=== PATIENT | male | born 1955 | race Hispanic/Latino ===

== ENCOUNTER 2016-09-07 13:04 | Emergency (ER) | payer MEDICAID ==
[2016-09-07] MEDS ORDERED: NORMAL SALINE 500 ML IV ONE (14:34)
[2016-09-07 15:00] LABS: BASOPHILS 0.8 % (0.0-2.0); EOSINOPHILS 1.6 % (0.0-6.0); EOSINOPHILS# 0.1 X 10^3uL (0.0-0.4); HEMATOCRIT 49.1 % (42.0-54.0); HEMOGLOBIN 17.1 g/dL (14.0-18.0); LYMPHOCYTES 33.9 % (20.0-40.0); LYMPHOCYTES# 1.7 X 10^3uL (0.8-3.8); MEAN CELL VOLUME 86.3 fL (80.0-100.0); MEAN CORPUS. HGB CONCENTRATION 34.8 g/dL (32.0-36.0); MEAN PLATELET VOLUME 9.3 fL (7.4-10.4); MONOCYTES 6.6 % (2.0-10.0); MONOCYTES# 0.3 X 10^3uL (0.2-1.0); NEUTROPHILS 57.1 % (54.0-75.0); NEUTROPHILS# 2.8 X 10^3uL (2.6-6.7); RED BLOOD COUNT 5.69 X 10^6uL (4.20-6.10); RED CELL DISTRIBUTION WIDTH 11.9 % (11.5-14.5); WHITE BLOOD COUNT 4.9 X 10^3uL (3.9-10.7)
[2016-09-07 15:05] LABS: A/G RATIO 1.4; ALBUMIN 4.5 g/dL (3.5-5.0); BILIRUBIN, TOTAL 1.5 mg/dL (0.2-1.3); POTASSIUM 3.8 mmol/L (3.5-5.1); TOTAL PROTEIN 7.8 g/dL (6.3-8.2)
--- NOTE | 2016-09-07 16:09 | ER NURSING DOCUMENTATION ---
Nurse's Notes [facility] Name:Chirag Valderrama Age:60 yrs Sex:Male :1955 Arrival Date:09/07/2016 Time:13:04 Bed3 Private MD:Jas Servin Diagnosis:Diabetes with Hyperglycemia Presentation: 09/07 13:08 Acuity: TITUS 2 lc 13:39 Presenting complaint: Patient states: CHECK BLOOD SUGAR TODAY AND WAS 500. BEEN WORKING LONG HRS LATELY, NO OTHER STRESSORS. Transition of care: Home. 13:39 Method Of Arrival: Private Vehicle Triage Assessment: 13:43 General: Appears comfortable, Behavior is appropriate for age, cooperative. Pain: lc Denies pain. Neuro: Level of Consciousness is awake, alert, Oriented to person, place, time, event, Facial symmetry appears normal. Respiratory: Airway is patent Respiratory pattern is regular. GI: Abd is soft and non tender X 4 quads. Derm: Skin is pink, warm & dry. Historical: - Allergies: No known drug Allergies; - Home Meds: 1. Metformin Oral 2. Lisinopril Oral 3. aspirin 81 mg oral tab 1 tab once daily - PMHx: Diabetes - NIDDM; Hypertension; - PSHx: None; - Tetanus: < 10 years. - Ebola Screening: : Patient denies travel to an Ebola-affected area in the 21 days before illness onset. No symptoms or risks identified at this time. . - Immunization history: Flu Vaccine < 1 year. - Social history: Smoking status: Patient states was never smoker of tobacco. Screenin:49 Infectious Disease Risk None. Abuse screen: Denies threats or abuse. Denies injuries lc from another. Nutritional screening: No deficits noted. Assessment: 13:49 See Triage Assessment done by same RN. 15:04 Reassessment: Patient appears in no apparent distress at this time. RESTING lc COMFORTABLY, STILL AWAITING LAB RESULTS.. 15:41 Reassessment: Patient states symptoms have improved. Patient appears in no apparent lc distress at this time. DR ESPINO CONSULTED, DISCHARGE PLANNED, HAS NO C/O. COPY OF LABS GIVEN. Vital Signs: 13:45 BP 198 / 98; Pulse 66; Resp 16; Temp 98.3; Pulse Ox 90% on R/A; Weight 81.65 kg; Height lc 5 ft. 6 in. (167.64 cm); Pain 0/10; 14:29 Pulse Ox 94% ; lc 14:31 BP 179 / 109 (auto/); lc 15:00 BP 199 / 114 (auto/); lc 15:04 Pulse Ox 95% ; lc 15:26 BP 200 / 116; Pulse 58; Resp 16; Pulse Ox 95% on R/A; Pain 0/10; lc 13:45 Body Mass Index 29.05 (81.65 kg, 167.64 cm) ED Course: 13:05 Patient arrived in ED. ama 13:05 Jas Servin MD is Private Physician. ama 13:08 Triage completed. lc 13:21 Marck Robb MD is Attending Physician. tl1 13:39 Oliva Mills RN is Primary Nurse. lc 13:43 Inserted peripheral IV: 20 gauge in left antecubital area and blood collected. arc 13:49 Valuables Remains with patient Patient has correct armband on for positive lc identification. Placed in gown. Bed in low position. Call light in reach. Pulse Ox - RN Monitoring Only NIBP On - RN Monitoring Only. 13:50 Labs drawn. (by ED staff). Sent per order to lab. lc 15:32 Jas Servin MD is Referral Physician. tl1 Administered Medications: 14:30 Drug: NS 0.9% 500 ml; Route: IV; Rate: bolus; Infused Over: 1 hrs; Site: left lc antecubital; 15:56 Follow up: IV Status: Completed infusion; IV Intake: 500ml Point of Care Testing: Blood Glucose: 13:45 Blood Glucose: High >400; lc 15:41 Blood Glucose: 540 mg/dL; lc Ranges: Intake: 15:56 IV: 500ml; Total: 500ml. Outcome: 15:32 Discharge ordered by MD. tl1 15:57 Discharged to home ambulatory, with family. lc 15:57 Condition: STABLE , GLUCOSE REMAINS HIGH 15:57 Discharge Assessment: Patient awake, alert and oriented x 3. No cognitive and/or functional deficits noted. Patient verbalized understanding of disposition instructions. Patient awake and alert. Oriented to person, place and time. Patient verbalized understanding of disposition instructions. 15:57 Discharge instructions given to patient, family, Instructed on discharge instructions, follow up and referral plans. medication usage, RECHECKING BP AND GLUCOSE AND LOGGING THEM AND FOLLOW UP WITH PCP EARLY NEXT WEEK AND RETURN IF SUGARS DO NOT COME DOWN AND NEW SYMPTOMS APPEAR Demonstrated understanding of instructions, medications, Prescriptions given X 1, FX TO [employer] FOR FASTER PICKUP 16:08 IV D/Cyrus lc 16:08 Patient left the ED. lc Signatures: Oliva Mills RN RN Haroldo Webber, Reg Reg Marck Tejeda MD MD tl1 [facility], Reg Reg arc
--- NOTE | 2016-09-07 16:09 | ER PHYSICIAN DOCUMENTATION ---
Physician Documentation [facility] Name:Chirag Valderrama Age:60 yrs Sex:Male :1955 Arrival Date:09/07/2016 Time:13:04 Bed3 Private MD:Jas Servin EDClarisseMarck Disposition: 09/09 09:38 Chart complete. tl1 Disposition: 09/07/16 15:32 Discharged to Home/Self Care. Impression: Diabetes with Hyperglycemia. - Condition is Good. - Discharge Instructions: DIABETES, General Info, DIABETIC DIET. - Prescriptions for Glucotrol XL 5 mg Oral Tablet - take 1 tablet by ORAL route once daily; 30 tablet. - Medical Reconciliation form form. - Follow up: Jas Servin MD; When: 2 - 3 days; Reason: Recheck today's complaints, Continuance of care. - Problem is new. - Symptoms have improved. HPI: 09/07 13:21 This 60 yrs old Male presents to ER with complaints of High Blood Sugar. tl1 13:21 His blood sugrars have been creeping up slowly over the last 2 weeks for no apparent tl1 reason. He has not felt particularly ill, but when his glucometer today read a blood sugar of 550, he became concerned. He has had polyuria and polydipsia. He denies f/c/s/cough/v/d/UTI SX. He has no other complaints.. Historical: - Allergies: No known drug Allergies; - Home Meds: 1. Metformin Oral 2. Lisinopril Oral 3. aspirin 81 mg oral tab 1 tab once daily - PMHx: Diabetes - NIDDM; Hypertension; - PSHx: None; - Tetanus: < 10 years. - Ebola Screening: : Patient denies travel to an Ebola-affected area in the 21 days before illness onset. No symptoms or risks identified at this time. . - Immunization history: Flu Vaccine < 1 year. - Social history: Smoking status: Patient states was never smoker of tobacco. ROS: 13:30 Constitutional: Positive for fatigue, Negative for body aches, chills, fever, poor PO tl1 intake. 13:30 Neck: Negative for pain at rest, rash, stiffness. 13:30 All other systems are negative. Exam: 13:30 Constitutional: The patient appears in no acute distress, alert, awake, comfortable, tl1 non-diaphoretic, non-toxic, well developed, well groomed, well nourished. 13:30 Head/face: Exam is negative for acute changes. 13:30 Eyes: Periorbital structures: appear normal, Extraocular movements: intact throughout, Conjunctiva: normal. 13:30 ENT: Mouth: Oral mucosa: pink and intact, dry, Posterior pharynx: is normal, Breath odor: is normal. 13:30 Neck: External neck: is normal, ROM/movement: is normal, is supple. 13:30 Cardiovascular: Rate: normal, Rhythm: regular, Heart sounds: normal. 13:30 Respiratory: Respirations: normal, Breath sounds: are normal. 13:30 Abdomen/GI: Bowel sounds: normal, Palpation: abdomen is soft and non-tender. 13:30 : CVA tenderness, is absent. 13:30 Skin: Exam negative for 13:30 Neuro: Exam negative for acute changes. Vital Signs: 13:45 BP 198 / 98; Pulse 66; Resp 16; Temp 98.3; Pulse Ox 90% on R/A; Weight 81.65 kg; Height lc 5 ft. 6 in. (167.64 cm); Pain 0/10; 14:29 Pulse Ox 94% ; lc 14:31 BP 179 / 109 (auto/); lc 15:00 BP 199 / 114 (auto/); lc 15:04 Pulse Ox 95% ; lc 15:26 BP 200 / 116; Pulse 58; Resp 16; Pulse Ox 95% on R/A; Pain 0/10; lc 13:45 Body Mass Index 29.05 (81.65 kg, 167.64 cm) lc MDM: 13:21 Patient medically screened. tl1 13:30 Differential diagnosis: DKA, hyperglycemia. Data reviewed: vital signs, nurses notes, tl1 lab test result(s), CBC, electrolytes, hepatic panel. Data reviewed: and as a result, I will discharge patient. Data interpreted: cafeteria monitor:. Counseling: I had a detailed discussion with the patient and/or guardian regarding: the historical points, exam findings, and any diagnostic results supporting the discharge/admit diagnosis, lab results, the need for outpatient follow up, to return to the emergency department if symptoms worsen or persist or if there are any questions or concerns that arise at home. Physician consultation: Iwona Ware MD was called at 15:22, was contacted at 15:25, regarding patient's condition, outpatient follow-up, and will see patient in office, in 2-3 days, She recommended starting glucotrol, which I did.. 09/07 15:06 Order name: CBC AUTO DIF, MDIF/RMOR IF IND; Complete Time: 15:20 EDMS 09/07 15:12 Order name: COMPREHENSIVE METABOLIC PANEL; Complete Time: 15:20 EDMS Dispensed Medications: 14:30 Drug: NS 0.9% 500 ml; Route: IV; Rate: bolus; Infused Over: 1 hrs; Site: left antecubital; 15:56 Follow up: IV Status: Completed infusion; IV Intake: 500ml Point of Care Testing: Blood Glucose: 13:45 Blood Glucose: High >400; lc 15:41 Blood Glucose: 540 mg/dL; lc Ranges: Critical Glucose Levels:Adult <50 mg/dl or >400 mg/dl <40 mg/dl or >180 mg/dl Signatures: Oliva Mills, RN RN Marck Stephenson MD MD tl1
== END 2016-09-07 16:09 | disposition home or self-care (01) ==
LOC: ER 13:04
DX: E11.65 Type 2 diabetes mellitus with hyperglycemia (principal); R53.83 Other fatigue; E86.0 Dehydration; I10 Essential (primary) hypertension; Z79.899 Other long term (current) drug therapy
CPT/HCPCS: 80053; 85025; 96360; 99284; J7040